=== PATIENT | male | born 1980 | race Caucasian/White ===

== ENCOUNTER 2017-01-19 19:31 | Inpatient (IN) | payer OTHER ==
[2017-01-19] MEDS ORDERED: Hydromorphone 1 mg/ml Ampule IV ONE (20:03)
[2017-01-19] MEDS ORDERED: Phenergan 25 MG INJ IV ONE (20:03)
[2017-01-19] MEDS ORDERED: CLINDAMYCIN-D5W 900 MG/50 ML*** 900 MG/50 ML BAG IV STA (20:05)
[2017-01-19] MEDS ORDERED: Phenergan 25 MG INJ ONE (20:11)
[2017-01-19] MEDS ORDERED: Sodium Chloride 0.9% 1000 ML 1,000 ML ONE (20:12)
[2017-01-19] MEDS ORDERED: CLINDAMYCIN-D5W 900 MG/50 ML*** 900 MG/50 ML BAG IV ONE (20:12)
[2017-01-19] MEDS ORDERED: Hydromorphone 1 mg/ml Ampule ONE (20:12)
[2017-01-19] MEDS ORDERED: Sodium Chloride 0.9% 1000 ML 1,000 ML IV SCH (20:15)
--- NOTE | 2017-01-19 20:18 | ERPHSYRPT ---
- History of Present Illness Time Seen by Provider: 01/19/17 19:58 Source: patient Exam Limitations: no limitations Patient Subjective Stated Complaint: RASH/REDNESSES TO RIGHT SIDE ABD THAT SPREADS TO BACK AND FRONT OF ABD. Triage Nursing Assessment: Pt is alert x 3. skin is pink warm and dry. rednesses noted to the abd on the right side that spreads around to the back and middle of abd on the right side low is a scabbed area the skin is warm to touch and hard near the scabbed area. respirations even and unlabored. Physician History: FOR THE PAST 2 WEEKS PT HAS HAD A RED AREA ON THE RIGHT LOWER ABDOMEN WHICH HAS ENLARGED AND IS PAINFUL. PT STARTED TO SQUEEZE PUS FROM THE WOUND 2 DAYS AGO. PT HAS HAD A SUBJECTIVE FEVER, DIAPHORESIS, INTERMITTENT FRONTAL HEADACHES AND CHILLS SINCE YESTERDAY; DENIES VOMITING, CHEST PAIN, SHORTNESS OF AIR. Hx Tetanus, Diphtheria Vaccination/Date Given: No Hx Influenza Vaccination/Date Given: No Hx Pneumococcal Vaccination/Date Given: No Immunizations Up to Date: Yes - Review of Systems Constitutional: Fever, Chills Respiratory: No Dyspnea Cardiac: No Chest Pain Abdominal/Gastrointestinal: Abdominal Pain, No Vomiting Neurological: Headache Endocrine: Excessive Sweating All Other Systems: Reviewed and Negative - Past Medical History Pertinent Past Medical History: Yes - Past Surgical History Past Surgical History: No - Social History Smoking Status: Former smoker Exposure to second hand smoke: No Drug Use: none Patient Lives Alone: No - Nursing Vital Signs Nursing Vital Signs: Initial Vital Signs Temperature 98.0 F 01/19/17 19:31 Pulse Rate 103 H 01/19/17 19:31 Respiratory Rate 18 01/19/17 19:31 Blood Pressure 128/84 01/19/17 19:31 O2 Sat by Pulse Oximetry 97 01/19/17 19:31 Pain Scale Pain Intensity 3 - Physical Exam General Appearance: alert Eye Exam: PERRL/EOMI Ears, Nose, Throat Exam: TMs normal, pharynx normal, moist mucous membranes Neck Exam: normal inspection Respiratory Exam: lungs clear Cardiovascular Exam: normal heart sounds Gastrointestinal/Abdomen Exam: normal bowel sounds, other (RLQ HAS EXTENSIVE MACULAR ERYTHEMA EXTENDING TO THE RIGHT FLANK WITH A TENDER 10CM X 6 CM INDURATION OVER THE RLQ.) Back Exam: normal range of motion Extremity Exam: normal inspection, No pedal edema Neurologic Exam: alert, cooperative SpO2: 98 Oxygen Delivery: Room Air - Course Nursing assessment & vital signs reviewed: Yes Ordered Tests: Active Orders 24 hr Category Date Time Status IV Insertion STAT Care 01/19/17 20:03 Active AMYLASE Stat Lab 01/19/17 20:20 Completed BLOOD CULTURE Stat Lab 01/19/17 20:35 Received CBC W DIFF Stat Lab 01/19/17 20:20 Completed CMP Stat Lab 01/19/17 20:20 Completed Erythrocyte Sedimentation Rate Stat Lab 01/19/17 20:20 Completed LIPASE Stat Lab 01/19/17 20:20 Completed MAG [MAGNESIUM] Stat Lab 01/19/17 20:20 Completed UA W/RFX UR CULTURE Stat Lab 01/19/17 20:30 Completed Medication Summary Generic Name Dose Route Start Last Admin Trade Name Freq PRN Reason Stop Dose Admin Sodium Chloride 1,000 mls @ 100 mls/hr 01/19/17 20:15 01/19/17 20:17 Sodium Chloride 0.9% 1000 Ml IV 02/18/17 20:14 100 mls/hr .Q10H NED Administration Discontinued Medications Generic Name Dose Route Start Last Admin Trade Name Freq PRN Reason Stop Dose Admin Hydromorphone HCl 0.5 mg 01/19/17 20:03 01/19/17 20:18 Hydromorphone 1 Mg/Ml Ampule IV 01/19/17 20:04 0.5 mg STAT ONE Administration Hydromorphone HCl Confirm 01/19/17 20:12 Hydromorphone 1 Mg/Ml Ampule Administered 01/19/17 20:13 Dose 1 mg .ROUTE .STK-MED ONE Clindamycin HCl/Dextrose 900 mg in 50 mls @ 100 mls/hr 01/19/17 20:05 20:17 Clindamycin-D5w 900 Mg/50 Ml IV 01/19/17 20:34 100 mls/hr STAT STA Administration Clindamycin HCl/Dextrose Confirm 01/19/17 20:12 Clindamycin-D5w 900 Mg/50 Ml Administered 01/19/17 20:13 Dose 900 mg in 50 mls @ ud IV .STK-MED ONE Promethazine HCl 6.25 mg 01/19/17 20:03 01/19/17 20:17 Phenergan 25 Mg Inj IV 01/19/17 20:04 6.25 mg STAT ONE Administration Promethazine HCl Confirm 01/19/17 20:11 Phenergan 25 Mg Inj Administered 01/19/17 20:12 Dose 25 mg .ROUTE .STK-MED ONE Lab/Rad Data: Laboratory Result Diagrams 01/19/17 20:20 01/19/17 20:20 Laboratory Results 01/19/17 01/19/17 01/19/17 Range/Units 20:30 20:20 20:20 WBC (4.0-10.5) K/mm3 RBC (4.1-5.6) M/mm3 Hgb (12.5-18.0) gm/dl Hct (42-50) % MCV (78-100) fl MCH (26-32) pg MCHC (32-36) g/dl RDW (11.5-14.0) % Plt Count (150-450) K/mm3 MPV (6-9.5) fl Gran % (36.0-66.0) % Lymphocytes % (24.0-44.0) % Monocytes % (0.0-12.0) % Eosinophils % (0.00-5.0) % Basophils % (0.0-0.4) % Basophils # (0-0.4) ESR 27 H (0-15) mm/hr Sodium (136-145) mEq/L Potassium (3.5-5.1) mEq/L Chloride (98-107) mEq/L Carbon Dioxide (21-32) mEq/L Anion Gap (5-15) MEQ/L BUN (9-20) mg/dL Creatinine (0.55-1.30) mg/dl Estimated GFR ML/MIN Glucose (70-110) MG/DL Calcium (8.5-10.1) mg/dL Magnesium 2.1 (1.8-2.4) mg/dL Total Bilirubin (0.2-1.0) mg/dL AST (15-37) U/L ALT (12-78) U/L Alkaline Phosphatase (46-116) U/L Serum Total Protein (6.4-8.2) gm/dL Albumin (3.4-5.0) g/dL Amylase (25-115) U/L Lipase (73-393) U/L Ur Collection Type CLEAN CATCH Urine Color YELLOW (YELLOW) Urine Appearance CLEAR (CLEAR) Urine pH 7.0 (5-6) Ur Specific [place] 1.015 (1.005-1.025) Urine Protein NEGATIVE (Negative) Urine Ketones NEGATIVE (NEGATIVE) Urine Blood NEGATIVE (0-5) Gino/ul Urine Nitrite NEGATIVE (NEGATIVE) Urine Bilirubin NEGATIVE (NEGATIVE) Urine Urobilinogen 4 (0-1) mg/dL Ur Leukocyte Esterase NEGATIVE (NEGATIVE) Urine Glucose 1000 (NEGATIVE) mg/dL Specimen Received 01/19/17:203401/19/17 01/19/17 Range/Units 20:20 20:20 WBC 16.5 H (4.0-10.5) K/mm3 RBC 4.91 (4.1-5.6) M/mm3 Hgb 15.2 (12.5-18.0) gm/dl Hct 44.1 (42-50) % MCV 89.8 (78-100) fl MCH 31.0 (26-32) pg MCHC 34.5 (32-36) g/dl RDW 12.5 (11.5-14.0) % Plt Count 204 (150-450) K/mm3 MPV 10.1 H (6-9.5) fl Gran % 76.9 H (36.0-66.0) % Lymphocytes % 13.4 L (24.0-44.0) % Monocytes % 8.8 (0.0-12.0) % Eosinophils % 0.8 (0.00-5.0) % Basophils % 0.1 (0.0-0.4) % Basophils # 0.02 (0-0.4) ESR (0-15) mm/hr Sodium 138 (136-145) mEq/L Potassium 3.7 (3.5-5.1) mEq/L Chloride 101 (98-107) mEq/L Carbon Dioxide 27.3 (21-32) mEq/L Anion Gap 13.5 (5-15) MEQ/L BUN 14 (9-20) mg/dL Creatinine 1.32 H (0.55-1.30) mg/dl Estimated GFR > 60 ML/MIN Glucose 134 H (70-110) MG/DL Calcium 9.5 (8.5-10.1) mg/dL Magnesium (1.8-2.4) mg/dL Total Bilirubin 0.50 (0.2-1.0) mg/dL AST 19 (15-37) U/L ALT 48 (12-78) U/L Alkaline Phosphatase 74 (46-116) U/L Serum Total Protein 8.2 (6.4-8.2) gm/dL Albumin 4.0 (3.4-5.0) g/dL Amylase 41 (25-115) U/L Lipase 90 (73-393) U/L Ur Collection Type Urine Color (YELLOW) Urine Appearance (CLEAR) Urine pH (5-6) Ur Specific [place] (1.005-1.025) Urine Protein (Negative) Urine Ketones (NEGATIVE) Urine Blood (0-5) Gino/ul Urine Nitrite (NEGATIVE) Urine Bilirubin (NEGATIVE) Urine Urobilinogen (0-1) mg/dL Ur Leukocyte Esterase (NEGATIVE) Urine Glucose (NEGATIVE) mg/dL Specimen Received - Progress Discussed with DrChristal: Gustavo (OBS([id number])), Pau (WILL CONSULT TOMORROW([id number])) - Departure Time of Disposition: 21:48 Departure Disposition: Observation Clinical Impression: CELLULITIS/ABSCESS OF ABDOMEN Condition: Stable Critical Care Time: No Referrals: DOCTOR,NO FAMILY [Primary Care Provider] -
[2017-01-19 20:52] LABS: BASOPHIL % 0.1 % (0.0-0.4); Eosinophil % 0.8 % (0.00-5.0); Granulocytes % 76.9 % (36.0-66.0); Lymphocytes % 13.4 % (24.0-44.0); Mean Cell Volume 89.8 fl (78-100); Mean Platelet Volume 10.1 fl (6-9.5); Monocytes % 8.8 % (0.0-12.0); Platelet Count 204 K/mm3 (150-450); Red Blood Count 4.91 M/mm3 (4.1-5.6); Red Cell Distribution Width 12.5 % (11.5-14.0); White Blood Count 16.5 K/mm3 (4.0-10.5)
[2017-01-19 21:04] LABS: ADD URINE CULTURE? NO (NO); Bilirubin NEGATIVE (NEGATIVE); Blood NEGATIVE Ery/ul (0-5); COMPLETE URINE MICROSCOPIC? NO; Collection Type CLEAN CATCH; Glucose 1000 mg/dL (NEGATIVE); Leukocyte Esterase NEGATIVE (NEGATIVE)
[2017-01-19 21:12] LABS: ALKALINE PHOSPHATASE 74 U/L (46-116); ANION GAP 13.5 MEQ/L (5-15); BLOOD UREA NITROGEN 14 mg/dL (9-20); CHLORIDE 101 mEq/L (98-107); Carbon Dioxide 27.3 mEq/L (21-32); Glucose 134 MG/DL (70-110); LIPASE 90 U/L (73-393); Potassium 3.7 mEq/L (3.5-5.1); SGOT/AST 19 U/L (15-37); SGPT/ALT 48 U/L (12-78); SODIUM 138 mEq/L (136-145); Total Protein 8.2 gm/dL (6.4-8.2)
[2017-01-19] MEDS ORDERED: Phenergan 25 MG INJ IV PRN (22:31)
[2017-01-19] MEDS ORDERED: TYLENOL 325 MG PO PRN (22:31)
[2017-01-19] MEDS: Sodium Chloride 0.9% 1000 ML 1,000 ML IV SCH (22:43)
[2017-01-20] MEDS: CLINDAMYCIN-D5W 600 MG/50 ML*** 600 MG/50 ML BAG IV SCH ×5 (02:15→23:57)
[2017-01-20 06:00] LABS: ALBUMIN 3.1 g/dL (3.4-5.0); ALKALINE PHOSPHATASE 55 U/L (46-116); ANION GAP 9.8 MEQ/L (5-15); BLOOD UREA NITROGEN 14 mg/dL (9-20); CHLORIDE 106 mEq/L (98-107); Glucose 108 MG/DL (70-110); Potassium 4.5 mEq/L (3.5-5.1); SGOT/AST 14 U/L (15-37); SGPT/ALT 28 U/L (12-78); SODIUM 139 mEq/L (136-145); Total Protein 6.5 gm/dL (6.4-8.2)
[2017-01-20 06:14] LABS: Mean Cell Volume 92.5 fl (78-100); Mean Corpuscular Hemoglobin 31.1 pg (26-32); Mean Platelet Volume 10.3 fl (6-9.5); Platelet Count 184 K/mm3 (150-450); Red Blood Count 4.11 M/mm3 (4.1-5.6); Red Cell Distribution Width 12.4 % (11.5-14.0); White Blood Count 14.4 K/mm3 (4.0-10.5)
[2017-01-20 06:59] LABS: Eosinophil 2 % (0.00-3.0); Total Cells Counted 100
[2017-01-20 07:00] LABS: Platelet Estimate NORMAL (NORMAL)
--- NOTE | 2017-01-20 08:32 | PCM.HP ---
History of Present Illness - Chief Complaint Chief Complaint: Cellulitis/abcess of abdomen History of Present Illness: is a 36 year old male who has had a red, tender area on his right lower abdominal wall for the last 2 weeks. He squeezed it to express some pus 3 days ago but has gotten much worse in the last 2 days, felt feverish. no intra- abdominal pain, no blood in the stool, no vomiting, diarrhea etc. he has no past medical history, no physician and no history of skin or soft tissue infections. - Review of Systems Constitutional: Fever, Chills Ears, Nose, & Throat: No Symptoms Respiratory: No Cough, No Short Of Breath Cardiac: No Chest Pain, No Edema, No Syncope Abdominal/Gastrointestinal: No Abdominal Pain, No Nausea, No Vomiting, No Diarrhea Skin: Cellulitis, Induration All Other Systems: Reviewed and Negative Medications & Allergies Home Medications: Home Medication List No Reportable Medications [No Reported Medications] 01/19/17 [History Confirmed 01/19/17] Allergies/Adverse Reactions: Allergies Allergy/AdvReac Type Severity Reaction Status Date / Time No Known Drug Allergies Allergy Unverified 01/19/17 22:56 - Past Medical History Past Medical History: No Neurological History: No Pertinent History ENT History: No Pertinent History Cardiac History: No Pertinent History Respiratory History: No Pertinent History Endocrine Medical History: No Pertinent History Musculoskelatal History: No Pertinent History GI Medical History: No Pertinent History History: No Pertinent History Pyscho-Social History: No Pertinent History Male Reproductive Disorders: No Pertinent History - Past Surgical History Past Surgical History: No Neuro Surgical History: No Pertinent History Cardiac History: No Pertinent History Respiratory Surgery: No Pertinent History GI Surgical History: No Pertinent History Genitourinary Surgical Hx: No Pertinent History Musculskeletal Surgical Hx: No Pertinent History Male Surgical History: No Pertinent History - Social History Smoking Status: Former smoker How long have you smoked: 12years Exposure to second hand smoke: No Alcohol: Occasionally Drug Use: none - Physical Exam Vital Signs: Vital Signs - 24 hr Temp Pulse Resp BP Pulse Ox 01/20/17 07:03 98.6 F 90 20 130/68 98 01/20/17 04:00 98.6 F 74 14 125/61 97 01/19/17 22:47 98.3 F 96 H 18 140/75 95 01/19/17 21:48 98 01/19/17 20:51 103 H 16 134/84 98 01/19/17 19:40 98 01/19/17 19:31 98.0 F 103 H 18 128/84 97 General Appearance: no apparent distress, alert Respiratory Exam: normal breath sounds, lungs clear, No respiratory distress Cardiovascular Exam: regular rate/rhythm, normal heart sounds, normal peripheral pulses Gastrointestinal/Abdomen Exam: soft, normal bowel sounds, other (large 8cm indurated area with central fluctuance and necrotic focus in center. warm and red to touch with surrounding area of erythema), No tenderness, No mass Extremity Exam: normal inspection, normal range of motion, pelvis stable Skin Exam: normal color, warm, dry, No rash Results - Labs Lab/Micro Results: Lab Results-Last 24 Hours 01/20/17 01/20/17 01/20/17 Range/Units 05:20 05:20 05:20 WBC 14.4 H (4.0-10.5) K/mm3 RBC 4.11 (4.1-5.6) M/mm3 Hgb 12.8 (12.5-18.0) gm/dl Hct 38.0 L (42-50) % MCV 92.5 (78-100) fl MCH 31.1 (26-32) pg MCHC 33.7 (32-36) g/dl RDW 12.4 (11.5-14.0) % Plt Count 184 (150-450) K/mm3 MPV 10.3 H (6-9.5) fl Segmented Neutrophils 70 H (36.-66.) % Lymphocytes (Manual) 23 L (24-44) % Monocytes (Manual) 5 (0.0-12.0) % Eosinophils (Manual) 2 (0.00-3.0) % Differential Comment NORMAL Platelet Estimate NORMAL (NORMAL) Sodium 139 (136-145) mEq/L Potassium 4.5 (3.5-5.1) mEq/L Chloride 106 (98-107) mEq/L Carbon Dioxide 28.0 (21-32) mEq/L Anion Gap 9.8 (5-15) MEQ/L BUN 14 (9-20) mg/dL Creatinine 1.20 (0.55-1.30) mg/dl Estimated GFR > 60 ML/MIN Glucose 108 (70-110) MG/DL Calcium 8.6 (8.5-10.1) mg/dL Total Bilirubin 0.50 (0.2-1.0) mg/dL AST 14 L (15-37) U/L ALT 28 (12-78) U/L Alkaline Phosphatase 55 (46-116) U/L Serum Total Protein 6.5 (6.4-8.2) gm/dL Albumin 3.1 L (3.4-5.0) g/dL Prealbumin 15.0 L (18.0-35.7) mg/dL Assessment/Plan (1) Abscess of skin of abdomen Current Visit: Yes Status: Acute Assessment & Plan: continue clindamycin, keep NPO for surgical consult. will need I and D Code(s): L02.211 - CUTANEOUS ABSCESS OF ABDOMINAL WALL
[2017-01-20] MEDS: DILAUDID 2 MG INJECTION IV PRN ×3 (09:12→16:59)
[2017-01-20] MEDS: Sodium Chloride 0.9% 1000 ML 1,000 ML IV SCH (09:13)
[2017-01-20] MEDS ORDERED: Pepcid 20 MG VIAL IV SCH (16:45)
[2017-01-20] MEDS ORDERED: Lactated Ringers 1,000 ML IV SCH (17:00)
[2017-01-20] MEDS ORDERED: Lactated Ringers 1,000 ML IV ONE (19:44)
[2017-01-20] MEDS ORDERED: MORPHINE SULFATE 4 MG INJ IV PRN (21:06)
[2017-01-20] MEDS ORDERED: Dextrose 5%-1/4NS IV Soln. 1000 ML 1,000 ML IV SCH (21:30)
[2017-01-20] MEDS ORDERED: Dextrose 5% -0.45 NaCl 1000 ML 1,000 ML IV ONE (23:34)
[2017-01-20] MEDS: Dextrose 5% -0.45 NaCl 1000 ML 1,000 ML IV SCH (23:57)
[2017-01-21 05:39] LABS: BASOPHIL % 0.2 % (0.0-0.4); Eosinophil % 0.1 % (0.00-5.0); Granulocytes % 85.4 % (36.0-66.0); Lymphocytes % 7.7 % (24.0-44.0); Mean Cell Volume 89.7 fl (78-100); Mean Platelet Volume 10.2 fl (6-9.5); Monocytes % 6.6 % (0.0-12.0); Platelet Count 220 K/mm3 (150-450); Red Blood Count 4.45 M/mm3 (4.1-5.6); White Blood Count 12.8 K/mm3 (4.0-10.5)
[2017-01-21] MEDS: CLINDAMYCIN-D5W 600 MG/50 ML*** 600 MG/50 ML BAG IV SCH ×4 (05:39→23:32)
[2017-01-21 06:04] LABS: ALBUMIN 3.1 g/dL (3.4-5.0); ALKALINE PHOSPHATASE 64 U/L (46-116); ANION GAP 11.8 MEQ/L (5-15); BLOOD UREA NITROGEN 13 mg/dL (9-20); CHLORIDE 102 mEq/L (98-107); Carbon Dioxide 27.4 mEq/L (21-32); Glucose 171 MG/DL (70-110); Potassium 4.9 mEq/L (3.5-5.1); SGOT/AST 16 U/L (15-37); SGPT/ALT 33 U/L (12-78); SODIUM 136 mEq/L (136-145); Total Protein 7.2 gm/dL (6.4-8.2)
[2017-01-21] MEDS ORDERED: MORPHINE SULFATE 4 MG INJ IV PRN (06:48)
[2017-01-21] MEDS ORDERED: MORPHINE SULFATE 2 MG INJ IV PRN (06:49)
--- NOTE | 2017-01-21 08:33 | PCM.NOTE ---
Date and Time: 01/21/17830 Subjective Assessment: patient doing well, no new complaints today. pain has improved, tolerating po. no fever, wbc improved Objective Exam General Appearance: no apparent distress, alert Respiratory Exam: normal breath sounds, lungs clear, No respiratory distress Gastrointestinal/Abdomen Exam: soft, other (right lower abdomen with large open area with packing in place, surrounding erythema improved), No tenderness, No mass OBJECTIVE DATA Vital Signs: Vital Signs - 24 hr Temp Pulse Resp BP Pulse Ox 01/21/17 07:16 97.7 F 72 18 119/59 94 L 01/21/17 04:05 98.0 F 71 14 117/68 95 01/20/17 23:05 98.0 F 77 16 163/91 95 01/20/17 22:05 97.9 F 74 14 135/76 94 L 01/20/17 21:35 98.1 F 82 18 134/76 95 01/20/17 21:05 98.5 F 85 20 140/84 96 01/20/17 20:50 98.6 F 93 H 20 145/79 93 L 01/20/17 16:50 97.9 F 85 19 131/79 95 01/20/17 16:00 97.9 F 85 19 131/79 95 01/20/17 12:31 98 F 77 18 118/68 95 Oxygen-Last 24 hours O2 Percentage 3 Liters = 32% O2 Percentage 2 Liters = 28% O2 Percentage 2 Liters = 28% O2 Percentage 2 Liters = 28% O2 Percentage 2 Liters = 28% Pain Assessment - Last Documented Pain Intensity 2 Pain Scale Used 0-10 Pain Scale Intake and Output: Intake & Output 01/18/17 01/19/17 01/20/17 01/21/17 11:59 11:59 11:59 11:59 Intake Total 502 2265 Output Total 400 1350 Balance 102 915 Weight 90.718 kg 90.265 kg Lab Results: Lab Results-Last 24 Hours 01/21/17 01/21/17 Range/Units 05:20 05:20 WBC 12.8 H (4.0-10.5) K/mm3 RBC 4.45 (4.1-5.6) M/mm3 Hgb 13.8 (12.5-18.0) gm/dl Hct 39.9 L (42-50) % MCV 89.7 (78-100) fl MCH 31.0 (26-32) pg MCHC 34.6 (32-36) g/dl RDW 12.0 (11.5-14.0) % Plt Count 220 (150-450) K/mm3 MPV 10.2 H (6-9.5) fl Gran % 85.4 H (36.0-66.0) % Lymphocytes % 7.7 L (24.0-44.0) % Monocytes % 6.6 (0.0-12.0) % Eosinophils % 0.1 (0.00-5.0) % Basophils % 0.2 (0.0-0.4) % Basophils # 0.02 (0-0.4) Sodium 136 (136-145) mEq/L Potassium 4.9 (3.5-5.1) mEq/L Chloride 102 (98-107) mEq/L Carbon Dioxide 27.4 (21-32) mEq/L Anion Gap 11.8 (5-15) MEQ/L BUN 13 (9-20) mg/dL Creatinine 0.98 (0.55-1.30) mg/dl Estimated GFR > 60 ML/MIN Glucose 171 H (70-110) MG/DL Calcium 9.0 (8.5-10.1) mg/dL Total Bilirubin 0.30 (0.2-1.0) mg/dL AST 16 (15-37) U/L ALT 33 (12-78) U/L Alkaline Phosphatase 64 (46-116) U/L Serum Total Protein 7.2 (6.4-8.2) gm/dL Albumin 3.1 L (3.4-5.0) g/dL Assessment/Plan (1) Abscess of skin of abdomen Current Visit: Yes Status: Acute Assessment & Plan: continue clindamycin, await wound culture and sensitivity Code(s): L02.211 - CUTANEOUS ABSCESS OF ABDOMINAL WALL
[2017-01-21] MEDS: NORCO 5/325 MG PO PRN ×2 (08:42→23:31)
[2017-01-21] MEDS: Dextrose 5% -0.45 NaCl 1000 ML 1,000 ML IV SCH ×2 (11:39→23:42)
[2017-01-21] MEDS ORDERED: Decadron 4 MG INJ IV ONE (12:57)
[2017-01-21] MEDS ORDERED: DIPRIVAN 200 MG/20 ML IV ONE (12:57)
[2017-01-21] MEDS ORDERED: Zofran 4 MG/2 ML VIAL IV ONE (12:57)
[2017-01-21] MEDS ORDERED: DILAUDID 2 MG INJECTION IV ONE (12:57)
[2017-01-21] MEDS ORDERED: SUBLIMAZE 100 MCG/2 ML IV ONE (12:57)
--- NOTE | 2017-01-21 13:38 | OP ---
SURGERY DATE: 01/20/17 SURGERY TIME: 1920 PREOPERATIVE DIAGNOSIS: 1. ABSCESS LOWER ABDOMINAL WALL, RIGHT. POSTOPERATIVE DIAGNOSIS: 1. ABSCESS LOWER ABDOMINAL WALL, RIGHT. PROCEDURE: 1. Incision with 3 1/2" X 2" deep incision of the anterior abdominal wall which opened up 7 or 8 tracts of pus which were evacuated. It was subsequently packed with iodine on Kerlix. SURGEON: Sean Welch M.D. ANESTHESIA: General. COMPLICATIONS: None. CONDITION: Stable. INDICATION: Patient has an abscess right lower wall where the belt is rubbing, almost right paramedian. OPERATIVE PROCEDURE: Routine prep and drape. General anesthetic. Transverse incision. There was a 1" pus pocket, but then there were 3 or 4 tracts going down and 3 or 4 tracts going up that had purulence that were all expressed. It was generously irrigated and it was packed with iodine soaked Kerlix. Sterile dressing applied. The patient tolerated the procedure satisfactory. Findings discussed with family in waiting room.
[2017-01-22] MEDS: CLINDAMYCIN-D5W 600 MG/50 ML*** 600 MG/50 ML BAG IV SCH (05:43)
[2017-01-22 05:52] LABS: BASOPHIL % 0.2 % (0.0-0.4); Eosinophil % 2.3 % (0.00-5.0); Granulocytes % 55.7 % (36.0-66.0); Mean Cell Volume 91.8 fl (78-100); Mean Platelet Volume 9.8 fl (6-9.5); Monocytes % 10.8 % (0.0-12.0); Platelet Count 240 K/mm3 (150-450); Red Blood Count 4.16 M/mm3 (4.1-5.6); Red Cell Distribution Width 12.2 % (11.5-14.0); White Blood Count 8.7 K/mm3 (4.0-10.5)
[2017-01-22 06:06] LABS: ALBUMIN 2.9 g/dL (3.4-5.0); ALKALINE PHOSPHATASE 64 U/L (46-116); ANION GAP 11.1 MEQ/L (5-15); BLOOD UREA NITROGEN 12 mg/dL (9-20); CHLORIDE 106 mEq/L (98-107); Carbon Dioxide 26.5 mEq/L (21-32); Glucose 133 MG/DL (70-110); Potassium 3.8 mEq/L (3.5-5.1); SGOT/AST 15 U/L (15-37); SGPT/ALT 20 U/L (12-78); SODIUM 140 mEq/L (136-145); Total Protein 6.4 gm/dL (6.4-8.2)
[2017-01-22 07:34] VITALS: BP 122/74; PULSE 72; O2SAT 98
--- NOTE | 2017-01-22 10:18 | PCM.DCORD ---
- Discharge Discharge Date: 01/22/17 Disposition: Home, Self-Care Condition: Stable Prescriptions: New Clindamycin HCl [Cleocin HCl] 300 mg PO TID 7 Days #21 capsule Instructions: Incision and Drainage of a Skin Abscess Follow up with: RADHIKA GIBBONS MD [Primary Care Provider] - 01/28/17 1:30 pm ADAMARIS MAE [ACTIVE STAFF] - 1 Week Forms: Discharge Instructions
--- NOTE | 2017-01-24 10:02 | DS ---
DISCHARGE DIAGNOSIS: 1. ABDOMINAL WALL ABSCESS, SUSPECTED METHICILLIN-RESISTANT STAPHYLOCOCCUS AUREUS INFECTION. BRIEF HISTORY: The patient is a 36 y/o WM patient who had small pimples on his right lower quadrant of his abdomen. He began squeezing them and got pus out of them. However, he began having problems with redness and swelling at the site. He presented to the hospital and was admitted to the hospital for IV antibiotics and surgical evaluation. The patient was seen by surgery. Incision and drainage was performed to an area of approximately 10 cm in length which is now being packed. The patient feels that he is doing much better after the incision and drainage and the IV antibiotics and would like to be discharged home. His discharge WBC was 8700. His Hgb 12.9. Platelet count of 240,000. His metabolic panel was essentially normal other than a slightly high sugar at 133 fasting on the morning of 01/22/17. The patient has been afebrile with stable vital signs. DISCHARGE PLANS: The patient will be discharged home on Cleocin 300 mg tid. He is asked to do dressing changes twice daily and keep the wound covered. He is instructed to do thorough handwashing. Cultures are still pending, but this is likely a methicillin-resistant Staphylococcus aureus infection. The patient will be seen in follow-up by Dr. Chen in this next coming week. He is to return to the hospital if he has any problems with increasing fevers, chills, sweats, or increasing pain.
== END 2017-01-22 11:43 | disposition home or self-care (01) | DRG 603 ==
LOC: ED 19:31 → MED SURG 22:27 → OBSVTOIN 01-21 08:31
PROVIDERS: ADMIT Family Medicine; ATTEND Family Medicine
PROC: 0H97XZZ Drainage of Abdomen Skin, External Approach (ICD-10-PCS; principal; 2017-01-21)
DX: L02.211 Cutaneous abscess of abdominal wall (principal); B95.62 Methicillin resistant Staphylococcus aureus infection as the cause of diseases classified elsewhere
CPT/HCPCS: 00400; 36000; 36415; 80053; 81002; 82150; 83690; 83735; 84134; 85025; 85652; 87040; 87070; 87077; 87186; 96360; 96365; 96374; 96375; 99285; G0378; J1100; J1170; J2405; J2550; J2704; J3010; A9270-GY

== ENCOUNTER 2018-01-22 12:41 | Emergency (ER) | payer OTHER, SELFPAY ==
[2018-01-22 13:06] VITALS: O2SAT 98
[2018-01-22] MEDS ORDERED: TORAdol 30 mg Injection IM ONE (13:07)
--- NOTE | 2018-01-22 13:13 | ERPHSYRPT ---
- History of Present Illness Time Seen by Provider: 01/22/18 13:00 Source: patient Exam Limitations: no limitations Patient Subjective Stated Complaint: Left Earache for about 2 weeks radiates down jaw. went to [facility] x2 gave ear drops first visit, Tried to flush out pt told her to dig it out. Triage Nursing Assessment: A&O x 3, ambulated to room, Steady gait, left ear no drainage, no redness, slight swelling in jaw area. Physician History: 37 y/o male comes to the ER with complaints of left ear pain for the past 2 weeks. Pt describes the pain as sharp, constant, 6/10, with radiation to jaw and pt has not taken any pain meds. Pt was seen at urgent care for ear wax buildup and was told to use peroxide with no relief. Pt denies any fever or chills. Timing/Duration: gradual onset Severity: moderate ENT Location: ear (L) Prearrival Treatment: no prearrival treatment Modifying Factors: Improves With: nothing Associated Symptoms: ear pain (L), headache, No ringing of ears Allergies/Adverse Reactions: No Known Drug Allergies Allergy (Unverified 01/19/17 22:56) Home Medications: Meloxicam 15 mg [Meloxicam 15 MG] 0 mg PO DAILY 01/22/18 [History] Hx Tetanus, Diphtheria Vaccination/Date Given: Yes Hx Influenza Vaccination/Date Given: Yes Hx Pneumococcal Vaccination/Date Given: No Immunizations Up to Date: Yes - Review of Systems Constitutional: No Fever, No Chills Eyes: No Symptoms Ears, Nose, & Throat: Ear Pain, Hearing Changes Respiratory: No Cough, No Dyspnea Cardiac: No Chest Pain, No Edema, No Syncope Abdominal/Gastrointestinal: No Abdominal Pain, No Nausea, No Vomiting, No Diarrhea Genitourinary Symptoms: No Dysuria Musculoskeletal: No Back Pain, No Neck Pain Skin: No Rash Neurological: No Dizziness, No Focal Weakness, No Sensory Changes Psychological: No Symptoms Endocrine: No Symptoms All Other Systems: Reviewed and Negative - Past Medical History Pertinent Past Medical History: No Neurological History: No Pertinent History ENT History: No Pertinent History Cardiac History: No Pertinent History Respiratory History: No Pertinent History Endocrine Medical History: No Pertinent History Musculoskeletal History: No Pertinent History GI Medical History: No Pertinent History History: No Pertinent History Psycho-Social History: No Pertinent History Male Reproductive Disorders: No Pertinent History - Past Surgical History Past Surgical History: Yes Neuro Surgical History: No Pertinent History Cardiac: No Pertinent History Respiratory: No Pertinent History Gastrointestinal: No Pertinent History Genitourinary: No Pertinent History Musculoskeletal: No Pertinent History Male Surgical History: No Pertinent History Other Surgical History: Abcess drainage - Social History Smoking Status: Former smoker How long have you smoked: 12years Exposure to second hand smoke: No Drug Use: none Patient Lives Alone: Yes - Nursing Vital Signs Nursing Vital Signs: Initial Vital Signs Temperature 97.4 F 01/22/18 12:49 Pulse Rate 78 01/22/18 12:49 Respiratory Rate 18 01/22/18 12:49 Blood Pressure 164/89 01/22/18 12:49 O2 Sat by Pulse Oximetry 98 01/22/18 12:49 Pain Scale Pain Intensity 7 - Physical Exam General Appearance: no apparent distress, alert Eye Exam: bilateral eye: PERRL, EOMI Ear Exam: left ear: erythema, swelling, tenderness Nasal Exam: normal inspection Throat Exam: pharynx normal, moist mucus membranes, No tonsillar exudate Neck Exam: supple Cardiovascular/Respiratory Exam: normal breath sounds, regular rate/rhythm Abdominal Exam: non-tender, soft Neurologic Exam: alert, oriented x 3, sensation nml, No motor deficits Skin Exam: normal color, warm, dry SpO2: 98 Oxygen Delivery: Room Air - Course Nursing assessment & vital signs reviewed: Yes - Progress Progress: unchanged Progress Note: 01/22/18 13:10 The patient has clinical symptoms of otitis externa and will be treated with toradol and ciprodex - Departure Time of Disposition: 13:11 Departure Disposition: Home Clinical Impression: Otitis externa Qualifiers: Otitis externa type: unspecified type Chronicity: acute Laterality: left Qualified Code(s): H60.502 - Unspecified acute noninfective otitis externa, left ear Condition: Stable Critical Care Time: No Critical Care Time(excluding separately billable procedures): 30-74 minutes Referrals: DOCTOR,NO FAMILY [Primary Care Provider] - Instructions: Outer Ear Infection (DC) Additional Instructions: Return to the ER if you should have worsening ear pain, fever or chills. Complete the ear drops until completion. Stop meloxicam while taking toradol for pain. Prescriptions: Ciprofloxacin HCl/Dexameth [Ciprodex Otic Suspension] 7.5 ml OT QID #1 drops.susp Ketorolac Tromethamine [Toradol] 10 mg PO QID PRN #20 tablet PRN Reason: Pain
[2018-01-22] MEDS ORDERED: TORAdol 30 mg Injection ONE (13:14)
[2018-01-22 13:45] VITALS: BP 126/83; PULSE 72
== END 2018-01-22 13:49 | disposition home or self-care (01) ==
LOC: ED 12:41
DX: H60.92 Unspecified otitis externa, left ear (principal)
CPT/HCPCS: 96372; 99283; J1885

== ENCOUNTER 2019-02-20 23:15 | Emergency (ER) | payer OTHER ==
--- NOTE | 2019-02-20 23:18 | ERPHSYRPT ---
- History of Present Illness Time Seen by Provider: 02/20/19 23:18 Source: patient Exam Limitations: no limitations Physician History: 39 y/o white male presents with left flank pain of sudden onset. pain radiates to left groin. pt states no known kidney stone hx. pt had nausea secondary to pain. no dysuria or gross hematuria. denies abd pain Timing/Duration: today, sudden Method of Injury: other (no injury) Severity of Pain-Max: moderate Severity of Pain-Current: moderate Associated Symptoms: denies symptoms Previous symptoms: no prior history Allergies/Adverse Reactions: No Known Drug Allergies Allergy (Verified 02/20/19 23:27) Home Medications: Meloxicam 15 mg [Meloxicam 15 MG] 15 mg PO DAILY PRN 01/22/18 [History] Hx Tetanus, Diphtheria Vaccination/Date Given: Yes Hx Influenza Vaccination/Date Given: Yes Hx Pneumococcal Vaccination/Date Given: No - Review of Systems Constitutional: No Symptoms Eyes: No Symptoms Ears, Nose, & Throat: No Symptoms Respiratory: No Symptoms Cardiac: No Symptoms Abdominal/Gastrointestinal: No Symptoms Genitourinary Symptoms: Flank Pain (left ) Musculoskeletal: No Symptoms Skin: No Symptoms Neurological: No Symptoms Psychological: No Symptoms Endocrine: No Symptoms Hematologic/Lymphatic: No Symptoms Immunological/Allergic: No Symptoms All Other Systems: Reviewed and Negative - Past Medical History Pertinent Past Medical History: No Neurological History: No Pertinent History ENT History: No Pertinent History Cardiac History: No Pertinent History Respiratory History: No Pertinent History Endocrine Medical History: No Pertinent History Musculoskeletal History: No Pertinent History GI Medical History: No Pertinent History History: No Pertinent History Psycho-Social History: No Pertinent History Male Reproductive Disorders: No Pertinent History - Past Surgical History Past Surgical History: Yes Neuro Surgical History: No Pertinent History Cardiac: No Pertinent History Respiratory: No Pertinent History Gastrointestinal: No Pertinent History Genitourinary: No Pertinent History Musculoskeletal: No Pertinent History Male Surgical History: No Pertinent History Other Surgical History: Abcess drainage - Social History Smoking Status: Former smoker How long have you smoked: 12years Exposure to second hand smoke: No Drug Use: none Patient Lives Alone: Yes - Nursing Vital Signs Nursing Vital Signs: Initial Vital Signs Temperature 97.7 F 02/20/19 23:29 Pulse Rate 87 02/20/19 23:29 Respiratory Rate 18 02/20/19 23:29 Blood Pressure 155/113 02/20/19 23:29 O2 Sat by Pulse Oximetry 98 02/20/19 23:29 Pain Scale Pain Intensity 0 - Physical Exam General Appearance: mild distress, alert, anxiety Eye Exam: PERRL/EOMI, eyes nml inspection Ears, Nose, Throat Exam: normal ENT inspection, moist mucous membranes Neck Exam: normal inspection, non-tender, supple, full range of motion Respiratory Exam: airway intact, No chest tenderness, No respiratory distress Gastrointestinal Exam: soft, normal bowel sounds, No tenderness Rectal Exam: not done Back Exam: normal inspection, normal range of motion, CVA tenderness (left), No vertebral tenderness Extremity Exam: normal inspection, normal range of motion, pelvis stable Neurologic Exam: alert, oriented x 3, cooperative, brilliandeer lopper II-XII nml as tested Skin Exam: normal color, warm, dry Lymphatic Exam: No adenopathy SpO2 Interpretation: normal O2 Delivery: Room Air - Course Nursing assessment & vital signs reviewed: Yes Ordered Tests: Active Orders 24 hr Category Date Time Status IV Insertion STAT Care 02/20/19 23:33 Active ABDOMEN AND PELVIS W/0 CONTRAS [CT] Stat Exams 02/20/19 23:34 Taken UA W/RFX UR CULTURE Stat Lab 02/21/19 00:45 Completed Medication Summary Discontinued Medications Generic Name Dose Route Start Last Admin Trade Name Freq PRN Reason Stop Dose Admin Hydralazine HCl 2.5 mg 02/20/19 23:57 02/21/19 00:56 Apresoline 20 Mg/Ml Inj IV 02/20/19 23:58 Not Given STAT ONE Hydromorphone HCl 1 mg 02/20/19 23:33 02/20/19 23:53 Hydromorphone 1 Mg/Ml Ampule IV 02/20/19 23:34 1 mg STAT ONE Administration Hydromorphone HCl Confirm 02/20/19 23:46 Hydromorphone 1 Mg/Ml Ampule Administered 02/20/19 23:47 Dose 1 mg .ROUTE .STK-MED ONE Sodium Chloride 1,000 mls @ 999 mls/hr 02/20/19 23:33 02/21/19 00:56 Sodium Chloride 0.9% 1000 Ml IV 02/21/19 00:33 Infused .Q1H1M STA Infusion Sodium Chloride Confirm 02/20/19 23:46 Sodium Chloride 0.9% 1000 Ml Administered 02/20/19 23:47 Dose 1,000 mls @ ud .ROUTE .STK-MED ONE Ketorolac Tromethamine 30 mg 02/20/19 23:33 02/20/19 23:55 Toradol 30 Mg Injection IV 02/20/19 23:34 30 mg STAT ONE Administration Ketorolac Tromethamine Confirm 02/20/19 23:46 Toradol 30 Mg Injection Administered 02/20/19 23:47 Dose 30 mg .ROUTE .STK-MED ONE Ondansetron HCl 4 mg 02/20/19 23:33 02/20/19 23:55 Zofran 4 Mg/2 Ml Vial IV 02/20/19 23:34 4 mg STAT ONE Administration Ondansetron HCl Confirm 02/20/19 23:46 Zofran 4 Mg/2 Ml Vial Administered 02/20/19 23:47 Dose 4 mg .ROUTE .STK-MED ONE Lab/Rad Data: Laboratory Results 02/21/19 Range/Units 00:45 Urine Color YELLOW (YELLOW) Urine Appearance CLEAR (CLEAR) Urine pH 6.0 (5-6) Ur Specific [place] 1.015 (1.005-1.025) Urine Protein NEGATIVE (Negative) Urine Ketones NEGATIVE (NEGATIVE) Urine Blood MODERATE (0-5) Gino/ul Urine Nitrite NEGATIVE (NEGATIVE) Urine Bilirubin NEGATIVE (NEGATIVE) Urine Urobilinogen NEGATIVE (0-1) mg/dL Ur Leukocyte Esterase NEGATIVE (NEGATIVE) Urine WBC (Auto) 0-2 (0-5) /HPF Urine RBC (Auto) 51-100 (0-2) /HPF U Epithel Cells (Auto) NONE (FEW) /HPF Urine Bacteria (Auto) NONE SEEN (NEGATIVE) /HPF Urine Mucus (Auto) SLIGHT (NEGATIVE) /HPF Urine Culture Reflexed NO (NO) Urine Glucose NEGATIVE (NEGATIVE) mg/dL - Progress Progress: improved Progress Note: 02/21/19 01:28 ct abd/pelvis-urinary calculus from presumed ureteral stone passage Counseled pt/family regarding: lab results, diagnosis, need for follow-up, rad results - Departure Departure Disposition: Home Clinical Impression: Left flank pain, Urinary bladder calculus Condition: Stable Critical Care Time: No Referrals: DOCTOR,NO FAMILY [Primary Care Provider] - Additional Instructions: drink plenty of fluids. add ibuprofen for pain. follow up with primary doctor for further management Prescriptions: Hydrocodone/APAP 5-325 Tab^^^ [[place] 5-325 Tablet^^^] 1 tab PO Q8H PRN PRN #10 tablet MDD 3 PRN Reason: Pain
[2019-02-20] MEDS ORDERED: TORAdol 30 mg Injection IV ONE (23:33)
[2019-02-20] MEDS ORDERED: Zofran 4 MG/2 ML VIAL IV ONE (23:33)
[2019-02-20] MEDS ORDERED: Hydromorphone 1 mg/ml Ampule IV ONE (23:33)
[2019-02-20] MEDS ORDERED: Sodium Chloride 0.9% 1000 ML 1,000 ML IV STA (23:33)
[2019-02-20] MEDS ORDERED: Zofran 4 MG/2 ML VIAL ONE (23:46)
[2019-02-20] MEDS ORDERED: Hydromorphone 1 mg/ml Ampule ONE (23:46)
[2019-02-20] MEDS ORDERED: Sodium Chloride 0.9% 1000 ML 1,000 ML ONE (23:46)
[2019-02-20] MEDS ORDERED: TORAdol 30 mg Injection ONE (23:46)
[2019-02-20] MEDS ORDERED: APRESOLINE 20 MG/ML INJ IV ONE (23:57)
[2019-02-21 00:02] VITALS: PULSE 82
[2019-02-21 00:55] LABS: Appearance CLEAR (CLEAR); Bilirubin NEGATIVE (NEGATIVE); Blood MODERATE Ery/ul (0-5); Glucose NEGATIVE (NEGATIVE); Ketones NEGATIVE (NEGATIVE); Leukocyte Esterase NEGATIVE (NEGATIVE); Mucus SLIGHT /HPF (NEGATIVE); Nitrite NEGATIVE (NEGATIVE); Protein,Urine Dip NEGATIVE (Negative); RBC 51-100 /HPF (0-2); Specific Gravity 1.015 (1.005-1.025); Urobilinogen NEGATIVE mg/dL (0-1); WBC 0-2 /HPF (0-5)
[2019-02-21 00:57] LABS: Bacteria NONE SEEN /HPF (NEGATIVE)
[2019-02-21 00:58] VITALS: BP 127/72; O2SAT 96
--- NOTE | 2019-02-21 20:55 | XRAY ---
Exam: CT of the abdomen and pelvis without IV contrast from 02/21/2019. CTDI: 20.95 mGy. Comparison: None. Indication: 39-year-old male with abdominal pain, left flank pain radiating into back, emesis. Technique: Non-IV contrast axial images were obtained through the abdomen and pelvis. Reconstructed coronal and sagittal images were created and reviewed. Findings: The heart size is normal without pericardial effusion. Gas is seen within the distal esophageal lumen. The lung bases appear essentially clear. There is diffuse hepatic steatosis without definite mass or intrahepatic biliary duct distention. The gallbladder is partially distended and reveals no dense calcifications within it. The spleen is of normal size and reveals no mass. The pancreas appears within normal limits. No abnormality of the adrenal glands is seen. Multiple tiny punctate calyceal stones are seen within the anticipated upper collecting systems of the kidneys. I see no hydronephrosis or definite renal mass. The ureters appear of normal diameter and reveal no ureterolith. The urinary bladder is distended and reveals a punctate stone at the mid posterior margin of the urinary bladder on axial image #81 of series 2. This may represent a recently passed stone that is now in the bladder. The abdominal aorta appears of normal diameter. Minimal atherosclerotic calcification is seen in the distal abdominal aorta. No abdominal aortic aneurysm or abnormal retroperitoneal lymphadenopathy is seen. A few small shotty nonspecific periaortic lymph nodes are seen. I see no free intraperitoneal air or ventral abdominal wall hernia. Scattered colonic stool is seen. I see no bowel obstruction or worrisome bowel wall thickening. The appendix is seen in portions and reveals no abnormality. There is no free intraperitoneal fluid. The seminal vesicles and prostate gland appear unremarkable. No enlarged pelvic lymph nodes are seen. There is a small calcified phlebolith within the lower left pelvis. I note prominent bilateral fat containing inguinal hernias, a bit larger on the left than right. No bowel containing inguinal hernia is seen. A few nonspecific postinflammatory lymph nodes are seen within each groin. The skeleton reveals no acute fracture or aggressive bone lesion. I see moderate narrowing of the L5S1 interspace with central vacuum disc phenomena and small anterior and posterior vertebral endplate spurs at L5-S1 facet consistent with moderate degenerative disc disease. A small Schmorl's node is seen within the posterior aspect of the inferior vertebral endplate of T10. Minimal lower thoracic anterior vertebral endplate spurring is seen. Impression: 1. I note some tiny punctate bilateral nonobstructing stones within each kidney which I believe are calyceal in location. No hydronephrosis or hydroureter is seen. However, I do see a tiny punctate stone at the posterior margin of the urinary bladder near the midline which probably represents a recently passed stone, perhaps from the left side given the patient's history. I do not see any obstructive uropathy at this time. 2. Hepatic steatosis. 3. Mild colonic stool retention. The appendix appears unremarkable. 4. Prominent bilateral fat containing inguinal hernias, somewhat larger on the left than right. No bowel containing hernia is seen. 5. Moderate degenerative disc disease is seen at L5-S1.
== END 2019-02-21 01:42 | disposition home or self-care (01) ==
LOC: ED 23:15
DX: R10.9 Unspecified abdominal pain (principal); N21.0 Calculus in bladder
CPT/HCPCS: 36000; 74176; 81001; 96360; 96374; 96375; 99284; J1170; J1885; J2405